=== PATIENT | female | born 1995 | race Caucasian/White ===

== ENCOUNTER 2017-08-27 19:22 | Observation (INO) | payer MEDICAID ==
[~2017-08-27] VITALS: Ht 170.2 cm; Wt 69.4 kg
[2017-08-27 20:12] LABS: Urine Bilirubin Negative (Negative); Urine Blood TRACE /uL (Negative); Urine Color Yellow (Yellow); Urine Glucose Normal (Normal); Urine Ketone 2+ (Negative); Urine Mucus FEW (None Seen); Urine Nitrite Negative (Negative); Urine RBC 16 /hpf (0 - 4); Urine Squamous Epithelial Cell FEW /hpf (<5); Urine Urobilinogen Normal (Negative)
[2017-08-27] MEDS ORDERED: PRENCAP87 OR (20:38)
[2017-08-27] MEDS ORDERED: TERBUTALINE SULFATE 1 MG/ML 1ML VIAL SC ONE ×2 (20:45→20:58)
[2017-08-27] MEDS ORDERED: BETAMETHASONE ACET (6MG/ML) 5ML VIAL ONE (21:17)
[2017-08-27] MEDS ORDERED: BETAMETHASONE ACET (6MG/ML) 5ML VIAL IM ONE (21:30)
== END 2017-08-27 22:40 | disposition home or self-care (01) | DRG 566 ==
LOC: LDRP 19:22
PROVIDERS: ADMIT Specialist; ATTEND Specialist
DX: O62.9 Abnormality of forces of labor, unspecified (principal); Z3A.31 31 weeks gestation of pregnancy
CPT/HCPCS: 59025; 76815; 76817; 81001; 81002; G0378; J0702; J3105; 96365; 96366; 96372

== ENCOUNTER 2017-08-28 19:02 | Observation (INO) | payer MEDICAID ==
[~2017-08-28 19:02] MED LIST: PRENCAP87 OR
[2017-08-28] MEDS ORDERED: BETAMETHASONE ACET (6MG/ML) 5ML VIAL IM ONE (21:45)
== END 2017-08-28 23:29 | disposition home or self-care (01) | DRG 563 ==
LOC: LDRP 19:02
PROVIDERS: ADMIT Obstetrics & Gynecology; ATTEND Obstetrics & Gynecology
DX: O60.03 Preterm labor without delivery, third trimester (principal); Z3A.31 31 weeks gestation of pregnancy
CPT/HCPCS: 59025; 81002; G0378

== ENCOUNTER 2017-09-09 10:05 | Observation (INO) | payer MEDICAID ==
[2017-09-09] MEDS ORDERED: NIF10C PO (10:35)
== END 2017-09-09 11:15 | disposition home or self-care (01) | DRG 566 ==
LOC: LDRP 10:05
PROVIDERS: ADMIT Specialist; ATTEND Specialist
DX: O26.893 Other specified pregnancy related conditions, third trimester (principal); O60.00 Preterm labor without delivery, unspecified trimester; R10.9 Unspecified abdominal pain; Z3A.00 Weeks of gestation of pregnancy not specified
CPT/HCPCS: 59025; 76815; 81002; G0378

== ENCOUNTER 2017-09-16 09:50 | Observation (INO) | payer MEDICAID ==
[~2017-09-16 09:50] MED LIST changes: +NIF10C PO
== END 2017-09-16 10:45 | disposition home or self-care (01) | DRG 566 ==
LOC: LDRP 09:50
PROVIDERS: ADMIT Obstetrics & Gynecology; ATTEND Obstetrics & Gynecology
DX: O26.893 Other specified pregnancy related conditions, third trimester (principal); Z3A.34 34 weeks gestation of pregnancy
CPT/HCPCS: 59025; 76815; 81002; G0378

== ENCOUNTER 2017-09-23 09:55 | Observation (INO) | payer MEDICAID | END 2017-09-23 11:30 | disposition home or self-care (01) | DRG 566 | LOC: LDRP 09:55 | PROVIDERS: ADMIT Specialist; ATTEND Specialist | DX: O26.93 Pregnancy related conditions, unspecified, third trimester (principal); Z3A.00 Weeks of gestation of pregnancy not specified | CPT/HCPCS: 59025; 76815; 81002; G0378 ==

== ENCOUNTER 2017-09-24 21:45 | Inpatient (IN) | payer MEDICAID ==
[~2017-09-24] VITALS: Ht 170.2 cm; Wt 72.1 kg
[2017-09-24] MEDS ORDERED: LACT. RINGERS/OXYTOCIN 20UNITS 1,000 ML IV SCH (22:22)
[2017-09-24] MEDS ORDERED: PHISODERM TOP SOLN 240ML BTL TOP PRN (22:30)
[2017-09-24] MEDS ORDERED: WITCH HAZEL-GLYCERIN PAD TOP PRN (22:30)
[2017-09-24] MEDS ORDERED: LIDOCAINE 2%HCL (LOCAL ANESTH.) INJ 20ML MDV IJ PRN (22:30)
[2017-09-24] MEDS ORDERED: METHYLERGONOVINE MALEATE 0.2 MG/ML AMP IM PRN (22:30)
[2017-09-24] MEDS ORDERED: PROMETHAZINE HCL 25 MG/ML 1ML IV PRN (22:30)
[2017-09-24] MEDS ORDERED: DERMOPLAST 60ML BOTTLE TOP PRN (22:30)
[2017-09-24] MEDS ORDERED: TERBUTALINE SULFATE 1 MG/ML 1ML VIAL SC ONE (22:30)
[2017-09-24] MEDS ORDERED: NALBUPHINE HCL 10 MG/1ml INJECTION IV PRN (22:30)
[2017-09-24] MEDS ORDERED: ceFAZolin 1GM/50ML 50 ML IV ONE (22:52)
[2017-09-24 22:58] LABS: Urine Bilirubin Negative (Negative); Urine Blood Negative /uL (Negative); Urine Color Yellow (Yellow); Urine Glucose Normal (Normal); Urine Ketone Negative (Negative); Urine Nitrite Negative (Negative); Urine RBC 1 /hpf (0 - 4); Urine Squamous Epithelial Cell FEW /hpf (<5); Urine Urobilinogen Normal (Negative)
[2017-09-24 23:12] LABS: Basophils # (auto) 0 uL; Basophils % (auto) 0.2 % (0.0-2.0); Eosinophils # (auto) 0.1 uL; Hematocrit 35.3 % (36.0-46.0); Hemoglobin 12.2 g/dL (12.2-16.2); Lymphocytes # (auto) 1.6 uL; Lymphocytes % (auto) 14.7 % (10.0-50.0); Mean Corpuscular Hemoglobin 33.9 pg (28.0-32.0); Mean Corpuscular Hgb Conc. 34.4 g/dL (32.0-36.0); Mean Corpuscular Volume 98.3 fL (80.0-100.0); Mean Platelet Volume 9.6 fL (6.9-10.8); Monocytes # (auto) 0.8 uL; Monocytes % (auto) 7.1 % (0.0-12.0); Neutrophils # (auto) 8.3 uL; Nucleated Red Blood Cells % 0.1 %; Platelet Count (auto) 189 10^3/uL (140-450); Red Cell Distribution Width 12.1 % (11.8-14.3); White Blood Cell 10.7 10^3/uL (4.4-10.8)
[2017-09-24] MEDS: ceFAZolin 1GM/50ML 50 ML IV SCH (23:13)
[2017-09-24] MEDS: LACTATED RINGER'S 1,000 ML IV SCH (23:13)
[2017-09-24 23:28] LABS: INR 0.88 (0.9-1.15); Partial Thromboplastin Time 26.9 sec (22.64-33.71); Prothrombin Time 9.6 sec (9.37-12.3)
[2017-09-24 23:42] LABS: Albumin 3.1 g/dL (3.4-5.0); BUN/Creatinine Ratio 18.4; Bilirubin, Total 0.2 mg/dL (0.2-1.0); Calcium 8.9 mg/dL (8.5-10.1); Potassium 3.5 mmol/L (3.5-5.1); Total Protein 7.1 g/dL (6.4-8.2)
[2017-09-25] MEDS: LACTATED RINGER'S 1,000 ML IV SCH ×2 (04:58→14:22)
[2017-09-25] MEDS: ceFAZolin 1GM/50ML 50 ML IV SCH ×2 (07:48→14:00)
[2017-09-25 16:00] VITALS: BP 117/66
[2017-09-25] MEDS: DOCUSATE CALCIUM 240 MG CAP PO SCH (17:30)
[2017-09-25 19:18] VITALS: BP 110/65
[2017-09-25] MEDS: IBUPROFEN 600 MG TAB PO PRN (22:24)
[2017-09-25 23:30] VITALS: BP 103/59
[2017-09-26 03:21] VITALS: BP 114/69
[2017-09-26] MEDS: IBUPROFEN 600 MG TAB PO PRN ×3 (04:57→17:31)
[2017-09-26 07:05] VITALS: BP 101/57
[2017-09-26 11:06] VITALS: BP 114/57
[2017-09-26] MEDS: DOCUSATE CALCIUM 240 MG CAP PO SCH (11:24)
[2017-09-26 15:08] VITALS: BP 109/66
[2017-09-26 19:00] VITALS: BP 114/62
[2017-09-27] VITALS: BP 107/55
[2017-09-27 02:42] VITALS: BP 107/56
[2017-09-27] MEDS: IBUPROFEN 600 MG TAB PO PRN (05:02)
[2017-09-27 08:00] VITALS: BP 107/62
[2017-09-27] MEDS: DOCUSATE CALCIUM 240 MG CAP PO SCH (10:37)
== END 2017-09-27 11:10 | disposition home or self-care (01) | DRG 560 ==
LOC: OBSVTOIN 21:45 → LDRP 21:45
PROVIDERS: ADMIT Specialist; ATTEND Specialist
PROC: 10E0XZZ Delivery of Products of Conception, External Approach (ICD-10-PCS; principal; 2017-09-25)
DX: O60.14X0 Preterm labor third trimester with preterm delivery third trimester, not applicable or unspecified (principal); O42.913 Preterm premature rupture of membranes, unspecified as to length of time between rupture and onset of labor, third trimester; Z37.0 Single live birth; Z3A.35 35 weeks gestation of pregnancy
CPT/HCPCS: 36415; 59025; 76805; 80053; 80307; 81001; 85025; 85610; 85730; 86592; 86850; 86900; 86901; 96365; 96366; 96374; J0690; J2590

== ENCOUNTER 2023-01-13 15:29 | Emergency (ER) | payer MEDICAID ==
[~2023-01-13] VITALS: Ht 172.7 cm; Wt 69.3 kg
[2023-01-13 17:30] VITALS: BP 108/54
[2023-01-13] MEDS ORDERED: IBUP800T27 PO (17:42)
== END 2023-01-13 17:42 | disposition home or self-care (01) ==
LOC: ER 15:29
DX: S76.011A Strain of muscle, fascia and tendon of right hip, initial encounter (principal); X58.XXXA Exposure to other specified factors, initial encounter; Y93.K1 Activity, walking an animal; Y92.89 Other specified places as the place of occurrence of the external cause; Y99.8 Other external cause status
CPT/HCPCS: 73502

== ENCOUNTER 2023-08-30 21:47 | Emergency (ER) | payer MEDICAID ==
[~2023-08-30 21:47] MED LIST changes: +IBUP-1456 PO
== END 2023-08-30 22:37 | disposition left against medical advice (07) ==
LOC: ER 21:50
DX: R10.13 Epigastric pain (principal); Z53.21 Procedure and treatment not carried out due to patient leaving prior to being seen by health care provider